=== PATIENT | female | born 1990 | race Two or more races ===

== ENCOUNTER 2019-03-07 20:09 | Emergency (ER) | payer MEDICAID, OTHER ==
[~2019-03-07] VITALS: Ht 167.6 cm; Wt 55.3 kg
[2019-03-07] MEDS ORDERED: OLANZAPINE 10 MG VIAL IM ONE ×2 (20:12→20:30)
--- NOTE | 2019-03-07 20:15 | NUR ---
PT BIBRA FROM FRIEND'S HOUSE FOR BIZZARE BEHAVIOR. PER , +ETOH EARLIER TODAY. PT AGGITATED ON ARRIVAL, THRASHING IN GURNEY AND INCOHERENTLY SCREAMING AT STAFF. VITAL SIGNS STABLE. PLACED IN GOWN AND ON MONITOR. SITTER AT BEDSIDE. WILL CONTINUE TO MONITOR.
--- NOTE | 2019-03-07 20:25 | NUR ---
PROTEIN SPECIALIST AT BEDSIDE FOR BLOOD DRAW
[2019-03-07 20:33] LABS: BASOPHILS % (AUTO) 0.6 % (0.0-2.0); EOSINOPHILS % (AUTO) 0.8 % (0.0-6.0); HEMATOCRIT 43 % (33-45); HEMOGLOBIN 14.1 g/dL (11.5-14.8); LYMPHOCYTES # (AUTO) 1.6 /CMM (0.8-4.8); LYMPHOCYTES % (AUTO) 23.7 % (20.0-44.0); MEAN CORPUSCULAR HGB CONC 33 g/dl (31.0-36.0); MEAN CORPUSCULAR VOLUME 99 fL (82-100); MONOCYTES # (AUTO) 0.5 /CMM (0.1-1.30); MONOCYTES % (AUTO) 7.2 % (2.0-12.0); NEUTROPHILS # (AUTO) 4.5 /CMM (1.8-8.9); NEUTROPHILS % (AUTO) 67.7 % (43.0-81.0); PLATELET COUNT (AUTO) 329 /CMM (150-450); RED BLOOD CELL COUNT(AUTO) 4.28 MIL/uL (4.0-5.2); WHITE BLOOD COUNT (AUTO) 6.7 K/uL (4.3-11.0)
--- NOTE | 2019-03-07 20:40 | NUR ---
URINE COLLECTED AND SENT TO LAB
[2019-03-07 20:41] LABS: CALCIUM, SERUM 8.7 mg/dL (8.5-10.1); CARBON DIOXIDE 22 mmol/L (21-32); CHLORIDE 106 mmol/L (98-107); CREATININE 0.7 mg/dL (0.6-1.3); GLUCOSE 142 mg/dL (74-106); POTASSIUM 3.9 mmol/L (3.5-5.1); SODIUM SERUM 141 mmol/L (136-145); UREA NITROGEN, BLOOD 9 mg/dL (7-18)
[2019-03-07 20:47] LABS: APPEARANCE,URINE Slightly Cloudy (CLEAR); BILIRUBIN,URINE Negative (NEGATIVE); BLOOD, URINE Large Ery/uL (NEGATIVE); COLOR,URINE Red (YELLOW); KETONES,URINE Negative (NEGATIVE); LEUKOCYTE ESTERASE ,URINE Trace (NEGATIVE); NITRITE, URINE Negative (NEGATIVE); PROTEIN,URINE 30 mg/dl (NEGATIVE); UGLUCOSE Negative (NEGATIVE); UROBILINOGEN,URINE 0.2 EU/dL (0.2)
[2019-03-07 20:51] LABS: ALANINE AMINOTRANSFERASE 27 U/L (12-78); ALBUMIN 3.6 g/dL (3.4-5.0); ALCOHOL, BLOOD 357 mg/dL (0-0); ALKALINE PHOSPHATASE 55 U/L (46-116); ASPARTATE AMINOTRANSFERASE 34 U/L (15-37); BILIRUBIN,DIRECT 0.1 mg/dL (0.0-0.2); BILIRUBIN,TOTAL 0.3 mg/dL (0.2-1.0); SALICYLATE 3.1 mg/dL (2.8-20.0)
[2019-03-07 21:06] LABS: ACETAMINOPHEN < 2 ug/ml (10-30)
[2019-03-07 21:08] LABS: BACTERIA,URINE Few /HPF (None Seen); RBC,URINE 21-50 /HPF (0-2); SQUAMOUS EPITHELIAL CELL,UR Few /HPF (None Seen)
--- NOTE | 2019-03-07 21:14 | NUR ---
SAADIA: . WILL PICK HER UP ONCE AWAKE
--- NOTE | 2019-03-08 05:10 | NUR ---
PT AAOX4. RESPIRATIONS EVEN AND UNLABORED. ABLE TO AMBULATE WITH STEADY GAIT. 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 DENIES SI/HI.
--- NOTE | 2019-03-08 05:21 | NUR ---
Patient discharged to home in stable condition. Written and verbal after care instructions given. Patient verbalizes understanding of instruction.Pt ambulatory with a steady gait
[2019-03-08 05:22] VITALS: BP 120/87
== END 2019-03-08 05:22 | disposition home or self-care (01) ==
LOC: ER 20:12
DX: F10.129 Alcohol abuse with intoxication, unspecified (principal); Y90.8 Blood alcohol level of 240 mg/100 ml or more
CPT/HCPCS: 36415; 80048; 80076; 80305; 80307; 80329; 81001; 84703; 85025; 96372; 99283; G0480; J3490; 81000-TC